=== PATIENT | male | born 1950 | race Caucasian/White ===

== ENCOUNTER → 2017-07-08 06:54 | Outpatient (CLI) | payer OTHER, SELFPAY ==
[2017-07-08 09:03] LABS: Hemoglobin A1C% w Est Avg Glu 8.1 % (4.0-6.0)
[2017-07-08 09:16] LABS: Alanine Aminotransferase 28 IU/L (21-72); Albumin 4.3 g/dL (3.5-5.0); Albumin Globulin Ratio 1.7 (1.0-2.8); Alkaline Phosphatase 112 U/L (38-126); Aspartate Aminotransferase 24 IU/L (17-59); Bilirubin Total 0.9 mg/dL (0.2-1.3); Calcium 9.6 mg/dL (8.4-10.2); Cholesterol 171 mg/dL (140-199); Estimated Glomerular Filt Rate > 60.0 mL/min (>60); Globulin 2.6 g/dL (1.7-4.1); Glucose 238 mg/dL (80-110); HDL Cholesterol 57 mg/dL (40-60); HEMOLYSIS < 15 (0-50); LDL Cholesterol Calculated 82 mg/dL (<100); Potassium 4.3 mmol/L (3.4-5.1); Sodium 138 mmol/L (137-145); Total Protein 6.9 g/dL (6.3-8.2); Triglycerides 160 mg/dL (35-150)
[2017-07-08 09:33] LABS: Thyroid Stimulating Hormone 4.78 uIU/mL (0.47-4.68)
[2017-07-08 09:34] LABS: Prostate Specific Antigen Scrn 0.565 ng/mL (0.1-4.0)
[2017-07-08 10:19] LABS: Creatinine Urine Random 75.5 mg/dL
[2017-07-08 11:29] LABS: Microalbumi Creatinin Ratio Ur 1063.5 ug/mg CR (<30)
[2017-07-08 11:31] LABS: Microalbumin Urine Random 80.3 mg/dL (0-1.6)
[2017-07-08 17:22] LABS: Add Manual Diff / Slide Review NO; Basophils Percent Auto 0.5 % (0-2); Eosinophils Percent Auto 2.7 % (2-4); Hematocrit 42.6 % (41-53); Lymphocytes Percent Auto 21.4 % (25-40); Mean Corpuscular HGB Conc 35.2 % (30-36); Mean Corpuscular Volume 85.2 fL (80-100); Monocytes Percent Auto 6.8 % (3-14); Neutrophils Absolute Auto 5000 /uL (3000-5900); Neutrophils Percent Auto 68.6 % (50-75); Platelet Count 162 X10^3/uL (150-400); Red Cell Distribution Width 13.4 % (11.6-14.8); White Blood Cell Count 7.2 X10^3/uL (4.5-11.0)
== END ==
PROVIDERS: PCP Family Medicine; Visit Provider Family Medicine
DX: E11.9 Type 2 diabetes mellitus without complications (principal); I10 Essential (primary) hypertension
CPT/HCPCS: 36415; 80053; 80061; 82043; 82570; 83036; 84443; 85025; G0103

== ENCOUNTER 2018-08-30 01:50 | Emergency (ER) | payer MEDICARE, MEDICAID, SELFPAY ==
[2018-08-30] VITALS (10 sets, daily range): BP systolic 124–179; BP diastolic 83–117; PULSE 98–115; RESP 14–24; TEMP 36.4–36.7; O2SAT 92–99; BMI 29.6
[2018-08-30] MEDS: NITROGLYCERIN 0.4 MG SL TAB SL (01:55)
--- NOTE | 2018-08-30 01:56 | DI.RAD.S_ITS ---
PROCEDURE: XR CHEST 1V INDICATIONS: chest pain TECHNIQUE: One view of the chest was acquired. COMPARISON: [facility], CR, XR CHEST 1 VIEW, 08/30/2018, 6:00. FINDINGS: Surgical changes and devices: None. Lungs and pleura: There is diffuse interstitial prominence. No focal airspace consolidation. No pleural effusion or pneumothorax. Mediastinum: Mediastinal contours appear normal. Heart size is normal. Bones and chest wall: No suspicious bony lesions. Overlying soft tissues appear unremarkable. IMPRESSION: Diffuse interstitial prominence suggesting pulmonary edema. Dictated by: Deepa Young M.D. on 08/30/2018 at 8:33 Approved by: Deepa Young M.D. on 08/30/2018 at 8:34
--- NOTE | 2018-08-30 01:57 | ED.CHESTPAIN ---
HPI - Chest Pain General Chief Complaint: Chest Pain Stated Complaint: Chest Pain x2 days Time Seen by Provider: 08/30/18 01:56 Source: patient and EMS Mode of arrival: EMS Limitations: no limitations History of Present Illness HPI narrative: This is a 68-year-old male who comes to the emergency department with complaint of chest pain for 3 days. Patient states he has had pressure in his chest that has been continuing. He states that it was milder starting on Tuesday and has increased in intensity. Tonight it became a 10/10 so he contacted EMS. He states that he has felt pressure in his chest radiating towards his back and arms. He states he has a history of cardiac stents placed in 2013 in [place]. He states this feels similar. He feels a little short of breath, he states he received 2 nitro sublingual which have improved his pain although it is still present. He denies any nausea or vomiting. No sweating currently but has felt a little sweaty over the last 3 days. He denies any swelling in his extremities. No issues with bowel movements, or urination. Patient denies any syncope but has felt dizzy. Patient states that he quit all of his medications in February of 2016. He states he took medication for hypertension, diabetes as well as dyslipidemia. Patient states that his blood pressure was very high and that a 200/100 + diastolic is not uncommon for him. He states he has had bilateral hernia repair, he has had multiple kidney stones and cataract surgery. He is not sure who his primary care doctor was but he has seen a Cardiology and the past. States he is allergic to aches, he denies tobacco, shock glass of alcohol 3 times weekly and denies illicit. Related Data Home Medications Medication Instructions Recorded Confirmed aspirin #0 10/12/16 07/07/17 Previous Rx's Medication Instructions Recorded ranitidine 150 mg tablet 150 mg PO BID #180 tab 09/07/17 Allergies Allergy/AdvReac Type Severity Reaction Status Date / Time EGG YOLKS Allergy Unknown Uncoded 07/07/17 09:55 Review of Systems Review of Systems ROS Unobtainable: All systems reviewed & are unremarkable except as noted in HPI and below Constitutional Denies chills, Reports excessive sweating (Slightly sweaty), Denies fever(s), Denies lethargy and Denies weakness Cardiovascular Reports chest pain, Reports chest pain at rest, Reports chest pain with activity, Reports diaphoresis, Denies syncope, Denies edema, Denies irregular heart rhythm, Reports lightheadedness, Denies palpitations, Reports dyspnea, Denies dyspnea on exertion and Denies orthopnea Respiratory Denies change in phlegm color, Denies chest congestion, Denies cough, Reports dyspnea, Denies dyspnea on exertion and Denies wheezing Gastrointestinal Gastrointestinal: Denies abdominal pain, Denies change in bowel habits, Denies diarrhea, Denies nausea and Denies vomiting Genitourinary Denies hematuria, Denies flank pain, Denies urinary frequency, Denies urinary incontinence and Denies urinary urgency Musculoskeletal Denies back pain Neurologic Denies syncope and Denies weakness Endocrine Reports excessive sweating (Slightly sweaty) and Denies palpitations Allergic/Immunologic Denies wheezing [facility] Medical History Ankle pain (Chronic) Anxiety (Chronic) CAD (coronary artery disease) (Chronic ~2013) Diabetes mellitus (Chronic ~2004) Gout (Chronic) Kidney disease (Chronic ~1989) Kidney stones (Chronic) Partial blindness (Chronic ~2002) Shoulder pain (Chronic) Cataracts, bilateral (Resolved ~2016) Chickenpox (Resolved) Measles (Resolved) Stroke (Resolved) Surgical History Anesthesia (Resolved) History of cataract surgery (Resolved ~2016) History of hernia surgery (Resolved ~1996) Family History (Updated 08/08/17 @ 15:27 by [place] Sr) Father Cancer Heart disease Hypertension Congestive heart failure Mother Cancer Diabetes mellitus Hypertension Brother Diabetes mellitus Heart disease Hypertension History of cardiac monitoring Brother Heart disease Hypertension Sister Adopted Grandfather No problems noted. Grandmother Diabetes mellitus Heart disease Hyperlipidemia Hypertension Obesity Grandfather No problems noted. Grandmother No problems noted. 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 special whit needs: Yes ([place], [place], [place] and all over the [place]) leisure activities: reading and other (Walking, ) seatbelt use: always working smoke detector in home: Yes fire extinguisher in home: Yes do you feel safe at home: No (Concerns about my stairs) Smoking Status: Former smoker quit status: has quit before (Quit at the age of 21) alcohol intake: current (1/2 juice glass at night, sometimes) substance use type: does not use during the past year weight has: decreased > 10 lbs well-balanced diet: daily or most days daily servings fruits/ve-4 caffeine: Yes (1-2 drinks per day) eating out: 1-3 times/week Type(s) of exercise: walking (Every day, 8-40 blocks) frequency: daily duration: 30-45 minutes/day additional social history: Plant based diet, 95% of the time. Family History Father Cancer Heart disease Hypertension Congestive heart failure Mother Cancer Diabetes mellitus Hypertension Brother Diabetes mellitus Heart disease Hypertension History of cardiac monitoring Brother Heart disease Hypertension Sister Adopted Grandfather No problems noted. Grandmother Diabetes mellitus Heart disease Hyperlipidemia Hypertension Obesity Grandfather No problems noted. Grandmother No problems noted. 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 special whit needs: Yes ([place], [place], [place] and all over the [place]) leisure activities: reading and other (Walking, ) seatbelt use: always working smoke detector in home: Yes fire extinguisher in home: Yes do you feel safe at home: No (Concerns about my stairs) Smoking Status: Former smoker quit status: has quit before (Quit at the age of 21) alcohol intake: current (1/2 juice glass at night, sometimes) substance use type: does not use during the past year weight has: decreased > 10 lbs well-balanced diet: daily or most days daily servings fruits/ve-4 caffeine: Yes (1-2 drinks per day) eating out: 1-3 times/week Type(s) of exercise: walking (Every day, 8-40 blocks) frequency: daily duration: 30-45 minutes/day additional social history: Plant based diet, 95% of the time. Exam Narrative Exam Narrative: GENERAL: Alert and oriented x three, he obese, well-appearing male in mild distress. HEENT: Head normocephalic, atraumatic, EOMI, pupils reactive, face symmetric, moist mucous membranes NECK: Supple, full range of motion CARDIOVASCULAR: Regular rate and rhythm without murmurs, rubs or gallops. RESPIRATORY: Breath sounds equal bilaterally, no wheezes rales or rhonchi. ABDOMEN: Soft, nontender. Normoactive bowel sounds all 4 quadrants. No guarding or rebound, rigidity, no mass. bruit, no pulsatile mass. : No CVA tenderness EXTREMITIES: Normal range of motion, no clubbing or edema. Neurovascularly intact NEUROLOGICAL: Cranial nerves II through XII grossly intact. Moving all extremities SKIN: Warm, dry, no petechiae, no rashes or lesions. Initial Vital Signs Initial Vital Signs: Vital Signs Temperature 97.6 F 08/30/18 01:45 Pulse Rate 115 H 08/30/18 01:45 Respiratory Rate 20 08/30/18 01:45 Blood Pressure 179/117 H 08/30/18 01:45 Pulse Oximetry 94 08/30/18 01:45 Course Orders Ordered: ED Orders 08/30/18 01:56 XR chest 1V Stat EKG-12 Lead Stat 08/30/18 02:24 B Type Natriuretic Peptide Stat Complete Blood Count AUTO DIFF Stat Comprehensive Metabolic Panel Stat Lipase Stat Troponin & CK Cardiac Panel Stat 08/30/18 02:39 CT angio chest abdomen pelvis Stat 08/30/18 04:36 EKG-12 Lead Stat Nitroglycerin (Nitroglycerin) 50 mg in 250 mls @ 1.5 mls/hr IV TITRATE DELLA; Protocol Last Admin: 08/30/18 02:45 Dose: 5 mcg/min, 1.5 mls/hr Sodium Chloride (Normal Saline 0.9%) 1,000 mls @ 150 mls/hr IV CONT DELLA Last Infusion: 08/30/18 03:57 Dose: 150 mls/hr Admin: 08/30/18 02:44 Dose: 150 mls/hr Heparin Sodium/Dextrose (Heparin Drip) 25,000 unit in 500 mls @ 21.216 mls/hr IV CONT DELLA; Protocol Last Admin: 08/30/18 04:46 Dose: 12 units/kg/hr, 21.216 mls/hr Discontinued Medications Furosemide (Lasix) 40 mg IV NOW ONE Stop: 08/30/18 02:27 Last Admin: 08/30/18 02:41 Dose: 40 mg Heparin Sodium (Porcine) (Heparin) 5,000 unit IV NOW ONE Stop: 08/30/18 02:13 Last Admin: 08/30/18 02:43 Dose: 5,000 unit Nitroglycerin (Nitrostat) 0.4 mg SL NOW ONE Stop: 08/30/18 01:56 Last Admin: 08/30/18 01:55 Dose: 0.4 mg Vital Signs - 8 hr 08/30/18 01:45 08/30/18 01:55 08/30/18 01:56 Temperature 97.6 F Pulse Rate 115 H 115 H 98 H Respiratory Rate 20 24 Blood Pressure 179/117 H 179/117 H Blood Pressure [Right Arm] 149/94 H Pulse Oximetry 94 99 08/30/18 02:45 08/30/18 03:05 08/30/18 03:16 Temperature 98.1 F Pulse Rate 105 H 100 H 104 H Respiratory Rate 24 15 Blood Pressure 151/84 H Blood Pressure [Right Arm] 160/98 H 169/94 H Pulse Oximetry 92 94 08/30/18 03:20 08/30/18 03:56 08/30/18 04:19 Temperature Pulse Rate 99 H 112 H 101 H Respiratory Rate 15 14 Blood Pressure 153/90 H Blood Pressure [Right Arm] 124/97 H 130/83 Pulse Oximetry 97 94 MDM - Chest Pain Lab Data Attestation: I reviewed the patient's lab results. Result diagrams: 08/30/18 02:24 08/30/18 02:24 Lab Results 08/30/18 08/30/18 Range/Units 02:24 02:24 WBC 12.1 H (4.5-11.0) X10^3/uL RBC 5.42 (4.5-5.9) X10^6/uL Hgb 15.5 (13.5-17.5) g/dL Hct 45.0 (41-53) % MCV 83.1 (80-100) fL MCH 28.6 (26-34) PG MCHC 34.4 (30-36) % RDW 14.0 (11.6-14.8) % Plt Count 157 (150-400) X10^3/uL Neut % (Auto) 85.5 H (50-75) % Lymph % (Auto) 8.7 L (25-40) % [place] % (Auto) 5.0 (3-14) % Eos % (Auto) 0.5 L (2-4) % Baso % (Auto) 0.3 (0-2) % Neut # (Auto) 76537 H (0311-3657) /uL Lymph # (Auto) 1100 (1034-9322) /uL [place] # (Auto) 600 (0-900) /uL Eos # (Auto) 100 (0-450) /uL Baso # (Auto) 0 (0-100) /uL Sodium 133 L (137-145) mmol/L Potassium 3.7 (3.4-5.1) mmol/L Chloride 98 (98-107) mmol/L Carbon Dioxide 23 (22-32) mmol/L BUN 17 (9-20) mg/dL Creatinine 1.10 (0.66-1.25) mg/dL Estimated GFR > 60.0 (>60) mL/min BUN/Creatinine Ratio 15.5 (6-22) Glucose 447 H (80-110) mg/dL Calcium 9.0 (8.4-10.2) mg/dL Total Bilirubin 1.1 (0.2-1.3) mg/dL AST 58 (17-59) IU/L ALT 25 (21-72) IU/L Alkaline Phosphatase 112 (38-126) U/L Total Creatine Kinase 275 H (55-170) U/L CK-MB (CK-2) 8.66 H (<2.37) ng/mL CK-MB (CK-2) Rel Index 3.1 (1.5-5.0) % Troponin I 6.110 H* (0.01-0.034) ng/mL B-Natriuretic Peptide 333 H (<100) Total Protein 6.4 (6.3-8.2) g/dL Albumin 3.9 (3.5-5.0) g/dL Globulin 2.5 (1.7-4.1) g/dL Albumin/Globulin Ratio 1.6 (1.0-2.8) Lipase 159 (23-300) U/L Urine Dip Bedside Urine Glucose Negative Bedside Urine Bilirubin - Negative Bedside Urine Ketone - Negative Urine Specific [place] 1.010 Bedside Urine Occult Blood - Negative Bedside Urine pH 7.0 Bedside Urine Protein - Negative Bedside Urine Urobilinogen - Negative Bedside Urine Nitrite - Negative Bedside Urine Leukocytes - Negative Esterase Imaging Data Chest x-ray: My impression: Pulm edema. in infiltrate, no cardiomegaly appreciated. chest/abd/pelvis angio: Radiologist's impression: Dissection protocal, Interstitial edema involving the bilateral lower lobes with minor pleural effusions. Negative for aneurysm or dissection. No rate limiting stenosis within the bilateral renal arteries. Approximately 50% stenosis proximal right renal artery. Renal cyst. Cholelithiasis. Hepatic steatosis. Small sliding hiatal hernia. Left colonic diverticulosis. ECG Data Attestation: I personally reviewed and interpreted this ECG as follows: Interpretation: EKG #[address] depression in 1 and aVL. Patient appears to have 1 mm of elevation in 3 and AVF although not as clear in lead 2. Patient has initial EKG from EMS which does not show ST elevation but appears to have a RsR in 3 and avF.. He does have depression in 1 and aVL. No prior EKGs available through [facility]. EKG#2 ST elevation in 3 and avF, depression in 1 and avL. EKG #3 ST elevation in 3 and AVF. T-wave inversion in 1 and aVL. T waves appear to be evolving in lateral leads. MDM Narrative Medical decision making narrative: Patient's pressure was quite elevated initially with EMS after 2 nitro it decreased to 222/147. He has asa 324mg with EMS. Patient was given a 3rd nitro and pressure decreased to 160's/106.. He states his chest pain is continuing to improve and states it is almost gone. Was 10/10 with EMS. Repeat EKG's show, ST elevation in 3 and avF 1mm with reciprocal depression in 1 and avL. Patient states chest pain is improving. Patient is tachycardic. His initial EKG from EMS does not show any appreciable elevation but does show an RSR in 3 and AVF. Does show a depression in 1 and aVL. Suspect hypertensive emergency and/or STEMI versus dissection vs other. Spoke with the emergency department at [facility]. Dr. Myles he accepts for transfer. He faxed EKGs to Dr. Bonner from Cardiology and they do ask that we do a angio of the chest abdomen to rule out dissection prior to transfer as patient is very high risk for dissection. Patient's chest pain has resolved with nitro gtt, BP is 150's/80's. Dicussed plan with patient. CT shows no dissection does show 50% stenosis proximal right renal artery no rate limiting stenosis within the bilateral renal arteries., he does have + troponin at 6, BS is 447. Re-contacted [facility]. Updated ER, they request repeat EKG and then ship to [facility]. Report, labs and EKGS x3 including EMS EKG, sent [facility] patient. Critical Care Time Critical Care Time: Yes Total Critical Care Time: 180 Attestation: The high probability of a clinically significant, sudden or life threatening deterioration of the [] system(s) required my full and direct attention, intervention and personal management. The aggregate critical care time was [] minutes. This time is in addition to time spent performing reported procedures but includes the following: [x] Data Review and interpretation [x] Patient assessment and monitoring of vital signs [x] Documentation [x] Medication orders and management Discharge Plan Departure Patient Disposition: [facility] Clinical Impression: Hypertensive emergency, ST elevation (STEMI) myocardial infarction Prescriptions: No Action aspirin 81 MG tablet,chewable Qty: 0 RF: 0 ranitidine HCl 150 mg tablet 150 mg PO BID Qty: 180 RF: 0 Referrals: Kaushik Perdue MD [Primary Care Provider] -
--- NOTE | 2018-08-30 02:04 | ED_ITS ---
HPI - Chest Pain General Chief Complaint: Chest Pain Stated Complaint: Chest Pain x2 days Time Seen by Provider: 08/30/18 01:56 Source: patient and EMS Mode of arrival: EMS Limitations: no limitations History of Present Illness HPI narrative: This is a 68-year-old male who comes to the emergency department with complaint of chest pain for 3 days. Patient states he has had pressure in his chest that has been continuing. He states that it was milder starting on Tuesday and has increased in intensity. Tonight it became a 10/10 so he contacted EMS. He states that he has felt pressure in his chest radiating to wards his back and arms. He states he has a history of cardiac stents placed in 2013 in [place]. He states this feels similar. He feels a little short of breath, he states he received 2 nitro sublingual which have improved his pain although it is still present. He denies any nausea or vomiting. No sweating currently but has felt a little sweaty over the last 3 days. He denies any swelling in his extremities. No issues with bowel movements, or urination. Patient denies any syncope but has felt dizzy. Patient states that he quit all of his medications in February of 2016. He states he took medication for hypertension, diabetes as well as dyslipidemia. Patient states that his blood pressure was very high and that a 200/100 + diastolic is not uncommon for him. He states he has had bilateral hernia repair, he has had multiple kidney stones and cataract surgery. He is not sure who his primary care doctor was but he has seen a Cardiology and the past. States he is allergic to aches, he denies tobacco, shock glass of alcohol 3 times weekly and denies illicit. Related Data Home Medications Medication Instructions Recorded Confirmed aspirin #0 10/12/16 07/07/17 Previous Rx's Medication Instructions Recorded ranitidine 150 mg tablet 150 mg PO BID #180 tab 09/07/17 Allergies Allergy/AdvReac Type Severity Reaction Status Date / Time EGG YOLKS Allergy Unknown Uncoded 07/07/17 09:55 Review of Systems Review of Systems ROS Unobtainable: All systems reviewed & are unremarkable except as noted in HPI and below Constitutional Denies chills, Reports excessive sweating (Slightly sweaty), Denies fever(s), Denies lethargy and Denies weakness Cardiovascular Reports chest pain, Reports chest pain at rest, Reports chest pain with activity, Reports diaphoresis, Denies syncope, Denies edema, Denies irregular heart rhythm, Reports lightheadedness, Denies palpitations, Reports dyspnea, Denies dyspnea on exertion and Denies orthopnea Respiratory Denies change in phlegm color, Denies chest congestion, Denies cough, Reports dyspnea, Denies dyspnea on exertion and Denies wheezing Gastrointestinal Gastrointestinal: Denies abdominal pain, Denies change in bowel habits, Denies diarrhea, Denies nausea and Denies vomiting Genitourinary Denies hematuria, Denies flank pain, Denies urinary frequency, Denies urinary incontinence and Denies urinary urgency Musculoskeletal Denies back pain Neurologic Denies syncope and Denies weakness Endocrine Reports excessive sweating (Slightly sweaty) and Denies palpitations Allergic/Immunologic Denies wheezing [facility] Medical History Ankle pain (Chronic) Anxiety (Chronic) CAD (coronary artery disease) (Chronic ~2013) Diabetes mellitus (Chronic ~2004) Gout (Chronic) Kidney disease (Chronic ~1989) Kidney stones (Chronic) Partial blindness (Chronic ~2002) Shoulder pain (Chronic) Cataracts, bilateral (Resolved ~2016) Chickenpox (Resolved) Measles (Resolved) Stroke (Resolved) Surgical History Anesthesia (Resolved) History of cataract surgery (Resolved ~2016) History of hernia surgery (Resolved ~1996) Family History (Updated 08/08/17 @ 15:27 by [place] Sr) Father Cancer Heart disease Hypertension Congestive heart failure Mother Cancer Diabetes mellitus Hypertension Brother Diabetes mellitus Heart disease Hypertension History of cardiac monitoring Brother Heart disease Hypertension Sister Adopted Grandfather No problems noted. Grandmother Diabetes mellitus Heart disease Hyperlipidemia Hypertension Obesity Grandfather No problems noted. Grandmother No problems noted. 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: Jain special whit needs: Yes ([place] and all over the [place]) leisure activities: reading and other (Walking, ) seatbelt use: always working smoke detector in home: Yes fire extinguisher in home: Yes do you feel safe at home: No (Concerns about my stairs) Smoking Status: Former smoker quit status: has quit before (Quit at the age of 21) alcohol intake: current (1/2 juice glass at night, sometimes) substance use type: does not use during the past year weight has: decreased > 10 lbs well-balanced diet: daily or most days daily servings fruits/ve-4 caffeine: Yes (1-2 drinks per day) eating out: 1-3 times/week Type(s) of exercise: walking (Every day, 8-40 blocks) frequency: daily duration: 30-45 minutes/day additional social history: Plant based diet, 95% of the time. Family History Father Cancer Heart disease Hypertension Congestive heart failure Mother Cancer Diabetes mellitus Hypertension Brother Diabetes mellitus Heart disease Hypertension History of cardiac monitoring Brother Heart disease Hypertension Sister Adopted Grandfather No problems noted. Grandmother Diabetes mellitus Heart disease Hyperlipidemia Hypertension Obesity Grandfather No problems noted. Grandmother No problems noted. 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: Jain special whit needs: Yes ([place], [place] and all [place] the [place]) leisure activities: reading and other (Walking, ) seatbelt use: always working smoke detector in home: Yes fire extinguisher in home: Yes do you feel safe at home: No (Concerns about my stairs) Smoking Status: Former smoker quit status: has quit before (Quit at the age of 21) alcohol intake: current (1/2 juice glass at night, sometimes) substance use type: does not use during the past year weight has: decreased > 10 lbs well-balanced diet: daily or most days daily servings fruits/ve-4 caffeine: Yes (1-2 drinks per day) eating out: 1-3 times/week Type(s) of exercise: walking (Every day, 8-40 blocks) frequency: daily duration: 30-45 minutes/day additional social history: Plant based diet, 95% of the time. Exam Narrative Exam Narrative: GENERAL: Alert and oriented x three, he obese, well-appearing m fidelia in mild distress. HEENT: Head normocephalic, atraumatic, EOMI, pupils reactive, face symmetric, moist mucous membranes NECK: Supple, full range of motion CARDIOVASCULAR: Regular rate and rhythm without murmurs, rubs or gallops. RESPIRATORY: Breath sounds equal bilaterally, no wheezes rales or rhonchi. ABDOMEN: Soft, nontender. Normoactive bowel sounds all 4 quadrants. No guarding or rebound, rigidity, no mass. bruit, no pulsatile mass. : No CVA tenderness EXTREMITIES: Normal range of motion, no clubbing or edema. Neurovascularly intact NEUROLOGICAL: Cranial nerves II through XII grossly intact. Moving all extremities SKIN: Warm, dry, no petechiae, no rashes or lesions. Initial Vital Signs Initial Vital Signs: Vital Signs Temperature 97.6 F 08/30/18 01:45 Pulse Rate 115 H 08/30/18 01:45 Respiratory Rate 20 08/30/18 01:45 Blood Pressure 179/117 H 08/30/18 01:45 Pulse Oximetry 94 08/30/18 01:45 Course Orders Ordered: ED Orders 08/30/18 01:56 XR chest 1V Stat EKG-12 Lead Stat 08/30/18 02:24 B Type Natriuretic Peptide Stat Complete Blood Count AUTO DIFF Stat Comprehensive Metabolic Panel Stat Lipase Stat Troponin & CK Cardiac Panel Stat 08/30/18 02:39 CT angio chest abdomen pelvis Stat 08/30/18 04:36 EKG-12 Lead Stat Nitroglycerin (Nitroglycerin) 50 mg in 250 mls @ 1.5 mls/hr IV TITRATE DELLA; Pr otocol Last Admin: 08/30/18 02:45 Dose: 5 mcg/min, 1.5 mls/hr Sodium Chloride (Normal Saline 0.9%) 1,000 mls @ 150 mls/hr IV CONT DELLA Last Infusion: 08/30/18 03:57 Dose: 150 mls/hr Admin: 08/30/18 02:44 Dose: 150 mls/hr Heparin Sodium/Dextrose (Heparin Drip) 25,000 unit in 500 mls @ 21.216 mls/hr IV CONT DELLA; Protocol Last Admin: 08/30/18 04:46 Dose: 12 units/kg/hr, 21.216 mls/hr Discontinued Medications Furosemide (Lasix) 40 mg IV NOW ONE Stop: 08/30/18 02:27 Last Admin: 08/30/18 02:41 Dose: 40 mg Heparin Sodium (Porcine) (Heparin) 5,000 unit IV NOW ONE Stop: 08/30/18 02:13 Last Admin: 08/30/18 02:43 Dose: 5,000 unit Nitroglycerin (Nitrostat) 0.4 mg SL NOW ONE Stop: 08/30/18 01:56 Last Admin: 08/30/18 01:55 Dose: 0.4 mg Vital Signs - 8 hr 08/30/18 01:45 08/30/18 01:55 08/30/18 01:56 Temperature 97.6 F Pulse Rate 115 H 115 H 98 H Respiratory Rate 20 24 Blood Pressure 179/117 H 179/117 H Blood Pressure [Right Arm] 149/94 H Pulse Oximetry 94 99 08/30/18 02:45 08/30/18 03:05 08/30/18 03:16 Temperature 98.1 F Pulse Rate 105 H 100 H 104 H Respiratory Rate 24 15 Blood Pressure 151/84 H Blood Pressure [Right Arm] 160/98 H 169/94 H Pulse Oximetry 92 94 08/30/18 03:20 08/30/18 03:56 08/30/18 04:19 Temperature Pulse Rate 99 H 112 H 101 H Respiratory Rate 15 14 Blood Pressure 153/90 H Blood Pressure [Right Arm] 124/97 H 130/83 Pulse Oximetry 97 94 MDM - Chest Pain Lab Data Attestation: I reviewed the patient's lab results. Result diagrams: 08/30/18 02:24 08/30/18 02:24 Lab Results 08/30/18 08/30/18 Range/Units 02:24 02:24 WBC 12.1 H (4.5-11.0) X10^3/uL RBC 5.42 (4.5-5.9) X10^6/uL Hgb 15.5 (13.5-17.5) g/dL Hct 45.0 (41-53) % MCV 83.1 (80-100) fL MCH 28.6 (26-34) PG MCHC 34.4 (30-36) % RDW 14.0 (11.6-14.8) % Plt Count 157 (150-400) X10^3/uL Neut % (Auto) 85.5 H (50-75) % Lymph % (Auto) 8.7 L (25-40) % Daniels % (Auto) 5.0 (3-14) % Eos % (Auto) 0.5 L (2-4) % Baso % (Auto) 0.3 (0-2) % Neut # (Auto) 53112 H (3674-5008) /uL Lymph # (Auto) 1100 (7156-9927) /uL Daniels # (Auto) 600 (0-900) /uL Eos # (Auto) 100 (0-450) /uL Baso # (Auto) 0 (0-100) /uL Sodium 133 L (137-145) mmol/L Potassium 3.7 (3.4-5.1) mmol/L Chloride 98 (98-107) mmol/L Carbon Dioxide 23 (22-32) mmol/L BUN 17 (9-20) mg/dL Creatinine 1.10 (0.66-1.25) mg/dL Estimated GFR > 60.0 (>60) mL/min BUN/Creatinine Ratio 15.5 (6-22) Glucose 447 H (80-110) mg/dL Calcium 9.0 (8.4-10.2) mg/dL Total Bilirubin 1.1 (0.2-1.3) mg/dL AST 58 (17-59) IU/L ALT 25 (21-72) IU/L Alkaline Phosphatase 112 (38-126) U/L Total Creatine Kinase 275 H (55-170) U/L CK-MB (CK-2) 8.66 H (<2.37) ng/mL CK-MB (CK-2) Rel Index 3.1 (1.5-5.0) % Troponin I 6.110 H* (0.01-0.034) ng/mL B-Natriuretic Peptide 333 H (<100) Total Protein 6.4 (6.3-8.2) g/dL Albumin 3.9 (3.5-5.0) g/dL Globulin 2.5 (1.7-4.1) g/dL Albumin/Globulin Ratio 1.6 (1.0-2.8) Lipase 159 (23-300) U/L Urine Dip Bedside Urine Glucose Negative Bedside Urine Bilirubin - Negative Bedside Urine Ketone - Negative Urine Specific [place] 1.010 Bedside Urine Occult Blood - Negative Bedside Urine pH 7.0 Bedside Urine Protein - Negative Bedside Urine Urobilinogen - Negative Bedside Urine Nitrite - Negative Bedside Urine Leukocytes - Negative Esterase Imaging Data Chest x-ray: My impression: Pulm edema. in infiltrate, no cardiomegaly appreciated. chest/abd/pelvis angio: Radiologist's impression: Dissection protocal, Interstitial edema involving the bilateral lower lobes with minor pleural effusions. Negative for aneurysm or dissection. No rate limiting stenosis within the bilateral renal arteries. Approximately 50% stenosis proximal right renal artery. Renal cyst. Cholelithiasis. Hepatic steatosis. Small sliding hiatal hernia. Left colonic diverticulosis. ECG Data Attestation: I personally reviewed and interpreted this ECG as follows: Interpretation: EKG #[address] depression in 1 and aVL. Patient appears to have 1 mm of elevation in 3 and AVF although not as clear in lead 2. Patient has initial EKG from EMS which does not show ST elevation but appears to have a RsR in 3 and avF.. He does have depression in 1 and aVL. No prior EKGs available through [facility]erver. EKG#2 ST elevation in 3 and avF, depression in 1 and avL. EKG #3 ST elevation in 3 and AVF. T-wave inversion in 1 and aVL. T waves appear to be evolving in lateral leads. [facility] Narrative Medical decision making narrative: Patient's pressure was quite elevated initially with EMS after 2 nitro it decreased to 222/147. He has asa 324mg with EMS. Patient was given a 3rd nitro and pressure decreased to 160's/106.. He states his chest pain is continuing to improve and states it is almost gone. Was 10/10 with EMS. Repeat EKG's show, ST elevation in 3 and avF 1mm with reciprocal depression in 1 and avL. Patient states chest pain is improving. Patient is tachycardic. His initial EKG from EMS does not show any appreciable elevation but does show an RSR in 3 and AVF. Does show a depression in 1 and aVL. Suspect hypertensive emergency and/or STEMI versus dissection vs other. S poke with the emergency department at [facility]. Dr. Myles he accepts for transfer. He faxed EKGs to Dr. Bonner from Cardiology and they do ask that we do a angio of the chest abdomen to rule out dissection prior to transfer as patient is very high risk for dissection. Patient's chest pain has resolved with nitro gtt, BP is 150's/80's. Dicussed plan with patient. CT shows no dissection does show 50% stenosis proximal right renal artery no rate limiting stenosis within the bilateral renal arteries., he does have + troponin at 6, BS is 447. Re-contacted [facility]. Updated ER, they request repeat EKG and then ship to [facility]. Report, labs and EKGS x3 including EMS EKG, sent [facility] patient. Critical Care Time Critical Care Time: Yes Total Critical Care Time: 180 Attestation: The high probability of a clinically significant, sudden or life threatening deterioration of the [] system(s) required my full and direct attention, intervention and personal management. The aggregate critical care time was [] minutes. This time is in addition to time spent performing reported procedures but includes the following: [x] Data Review and interpretation [x] Patient assessment and monitoring of vital signs [x] Documentation [x] Medication orders and management Discharge Plan Departure Patient Disposition: [facility] Clinical Impression: Hypertensive emergency, ST elevation (STEMI) myocardial infarction Prescriptions: No Action aspirin 81 MG tablet,chewable Qty: 0 RF: 0 ranitidine HCl 150 mg tablet 150 mg PO BID Qty: 180 RF: 0 Referrals: Kaushik Perdue MD [Primary Care Provider] -
[2018-08-30 02:33] LABS: Add Manual Diff / Slide Review NO; Basophils Absolute Auto 0 /uL (0-100); Basophils Percent Auto 0.3 % (0-2); Eosinophils Absolute Auto 100 /uL (0-450); Eosinophils Percent Auto 0.5 % (2-4); Hemoglobin 15.5 g/dL (13.5-17.5); Lymphocytes Absolute Auto 1100 /uL (1100-4500); Lymphocytes Percent Auto 8.7 % (25-40); Mean Corpuscular HGB Conc 34.4 % (30-36); Mean Corpuscular Hemoglobin 28.6 PG (26-34); Mean Corpuscular Volume 83.1 fL (80-100); Monocytes Absolute Auto 600 /uL (0-900); Neutrophils Absolute Auto 10400 /uL (1500-7000); Neutrophils Percent Auto 85.5 % (50-75); Platelet Count 157 X10^3/uL (150-400); Red Blood Cell Count 5.42 X10^6/uL (4.5-5.9); White Blood Cell Count 12.1 X10^3/uL (4.5-11.0)
--- NOTE | 2018-08-30 02:39 | DI.CT.S_ITS ---
PROCEDURE: CT ANGIO CHEST ABDOMEN PELVIS INDICATIONS: hypertension TECHNIQUE: Precontrast 5 mm thick sections acquired from the lung apices to the iliac crests. After the administration of intravenous contrast, 2.5 mm thick sections again acquired from the lung apices to the iliac crests. Maximum intensity projection (MIP) oblique sagittal and coronal reformats were then acquired. For radiation dose reduction, the following was used: automated exposure control. COMPARISON: [facility], CR, XR CHEST 1 VIEW, 08/30/2018, 6:00. FINDINGS: Image quality: Excellent. AORTA: Noncontrast images demonstrate no evidence of intramural hematoma. The aorta demonstrates normal caliber and contour without intimal flaps to suggest aortic dissection. There is conventional branching of the aortic arch. Visualized great vessels are normal in caliber and appear widely patent. CHEST: Lungs and pleura: There is mild dependent atelectasis. There are bilateral clustered indistinct ground glass opacities with a basilar predominance in the lower lobes suggestive of a mild infectious or inflammatory process. The distribution raises the possibility of aspiration. There is mild septal thickening also demonstrated in the lower lobes suggestive of mild pulmonary edema. No pleural effusions or pneumothorax. Central and peripheral airways are patent and normal in caliber. Mediastinum: Heart size is mildly enlarged. No pericardial effusion. No mediastinal or hilar adenopathy by size criteria. No pulmonary arteries are normal in size and demonstrate no filling defects to suggest central pulmonary embolism to the level of the proximal subsegmental pulmonary arteries. Esophagus is normal in caliber. There is a small hiatal hernia. Bones and chest wall: No axillary adenopathy by size criteria. Thyroid gland demonstrates no discrete nodules. No suspicious bony lesions. No vertebral body compression fractures. ABDOMEN: Vasculature: The celiac, superior mesenteric, and inferior mesenteric arteries appear patent. There is a small accessory right renal artery supplying the superior pole of the right kidney. There are 3 small accessory left renal arteries. There is a short segment of mild narrowing of approximately 40-50% in the proximal right renal artery. Solid organs: There is hypoattenuation of the liver consistent with fatty infiltration with relative sparing along the gallbladder fossa. A small hypodensity in the anterior right hepatic dome is too small to characterize but likely represents a cyst. The gallbladder appears within normal limits without calcified gallstones. Biliary system is non-dilated. Pancreas enhances normally. No peripancreatic fat stranding or fluid collections. No pancreatic duct dilatation. The spleen is normal in size. No adrenal nodules. Kidneys demonstrate no hydronephrosis. There are bilateral renal cysts as well as a smaller distal density round foci which are too small to characterize but likely represent cysts. There is a punctate nonobstructing stone in the inferior pole of the right kidney. Peritoneum and bowel: No free fluid or air. Bowel loops are normal in caliber and wall thickness. The appendix is normal in appearance. There is colonic diverticulosis without acute diverticulitis. Nodes and vessels: No retroperitoneal or mesenteric adenopathy by size criteria. Inferior vena cava is normal in morphology. Miscellaneous: No ventral hernias. PELVIS: Genitourinary: Bladder wall thickness is normal. Miscellaneous: No inguinal hernias or adenopathy. No ventral hernias. Bones: No suspicious bony lesions. No vertebral body compression fractures. IMPRESSION: 1. No evidence of aortic dissection. 2. No evidence of central pulmonary embolism. 3. Small bilateral accessory renal arteries, 1 on the right and 3 on the left. There is mild short segment narrowing in the proximal right renal artery of approximately 40-50%. 4. Small clustered ground glass opacities within the lower lobes bilaterally suggestive of mild infectious or inflammatory process. The distribution also raises the possibility of aspiration. Mild pulmonary edema is also noted in the lower lobes. 5. Colonic diverticulosis without acute diverticulitis. Dictated by: Tenzin Kiran M.D. on 08/30/2018 at 8:13 Approved by: Tenzin Kiran M.D. on 08/30/2018 at 8:29
[2018-08-30] MEDS: FUROSEMIDE 40 MG/4 ML VIAL IV (02:41)
[2018-08-30 02:42] LABS: Alanine Aminotransferase 25 IU/L (21-72); Albumin 3.9 g/dL (3.5-5.0); Albumin Globulin Ratio 1.6 (1.0-2.8); Alkaline Phosphatase 112 U/L (38-126); Aspartate Aminotransferase 58 IU/L (17-59); BUN Creatinine Ratio 15.5 (6-22); Bilirubin Total 1.1 mg/dL (0.2-1.3); Blood Urea Nitrogen 17 mg/dL (9-20); Carbon Dioxide 23 mmol/L (22-32); Chloride 98 mmol/L (98-107); Creatine Kinase 275 U/L (55-170); Estimated Glomerular Filt Rate > 60.0 mL/min (>60); Globulin 2.5 g/dL (1.7-4.1); Glucose 447 mg/dL (80-110); HEMOLYSIS < 15 (0-50); Lipase 159 U/L (23-300); Potassium 3.7 mmol/L (3.4-5.1); Sodium 133 mmol/L (137-145); Total Protein 6.4 g/dL (6.3-8.2)
[2018-08-30] MEDS: HEPARIN 5,000 UNIT/ML VIAL 5000 UNIT IV (02:43)
[2018-08-30] MEDS: SODIUM CHLORIDE 0.9% 1,000 ML 150 ML IV (02:44)
[2018-08-30] MEDS: NITROGLYCERIN 50 MG/250 ML INFUS..BTL IV (02:45)
[2018-08-30 02:57] LABS: CKMB % Relative Index 3.1 % (1.5-5.0); Creatine Kinase MB 8.66 ng/mL (<2.37)
[2018-08-30 03:01] LABS: B Type Natriuretic Peptide 333 (<100)
[2018-08-30] MEDS: HEPARIN DRIP 25,000 UNIT/500 ML IV.SOLN 21.216 UNIT IV (04:46)
== END 2018-08-30 05:19 | disposition short-term general hospital (02) ==
PROVIDERS: Emergency Provider Emergency Medicine; PCP Family Medicine
DX: I16.1 Hypertensive emergency (principal); I21.3 ST elevation (STEMI) myocardial infarction of unspecified site; Z95.818 Presence of other cardiac implants and grafts
CPT/HCPCS: 36415; 71045; 71275; 74174; 80053; 81003; 82550; 82553; 83690; 83880; 84484; 85025; 93005; 96365; 96366; 96375; 99285; 99291; 99292; J1644; J1940; Q9967

== ENCOUNTER → 2018-09-28 07:43 | Outpatient (CLI) | payer MEDICARE, MEDICAID, SELFPAY ==
[2018-09-28 08:13] LABS: Add Manual Diff / Slide Review NO; Basophils Absolute Auto 0 /uL (0-100); Basophils Percent Auto 0.1 % (0-2); Eosinophils Absolute Auto 200 /uL (0-450); Eosinophils Percent Auto 3.7 % (2-4); Hematocrit 36.5 % (41-53); Hemoglobin 12.7 g/dL (13.5-17.5); Lymphocytes Absolute Auto 1200 /uL (1100-4500); Lymphocytes Percent Auto 17.9 % (25-40); Mean Corpuscular HGB Conc 34.8 % (30-36); Mean Corpuscular Hemoglobin 29.3 PG (26-34); Mean Corpuscular Volume 84.1 fL (80-100); Monocytes Absolute Auto 500 /uL (0-900); Monocytes Percent Auto 7.6 % (3-14); Neutrophils Absolute Auto 4700 /uL (1500-7000); Neutrophils Percent Auto 70.7 % (50-75); Platelet Count 121 X10^3/uL (150-400); Red Blood Cell Count 4.34 X10^6/uL (4.5-5.9); Red Cell Distribution Width 14.1 % (11.6-14.8); White Blood Cell Count 6.7 X10^3/uL (4.5-11.0)
[2018-09-28 08:20] LABS: Hemoglobin A1C% w Est Avg Glu 8.8 % (4.0-6.0)
[2018-09-28 08:35] LABS: Alanine Aminotransferase 13 IU/L (21-72); Albumin 4.4 g/dL (3.5-5.0); Albumin Globulin Ratio 1.5 (1.0-2.8); Alkaline Phosphatase 67 U/L (38-126); Aspartate Aminotransferase 27 IU/L (17-59); BUN Creatinine Ratio 23.6 (6-22); Bilirubin Total 0.9 mg/dL (0.2-1.3); Blood Urea Nitrogen 33 mg/dL (9-20); Calcium 9.9 mg/dL (8.4-10.2); Carbon Dioxide 23 mmol/L (22-32); Chloride 106 mmol/L (98-107); Cholesterol 107 mg/dL (140-199); Estimated Glomerular Filt Rate 50.7 mL/min (>60); Globulin 2.9 g/dL (1.7-4.1); Glucose 152 mg/dL (80-110); HDL Cholesterol 45 mg/dL (40-60); HEMOLYSIS < 15 (0-50); LDL Cholesterol Calculated 41 mg/dL (<100); Potassium 4.5 mmol/L (3.4-5.1); Sodium 138 mmol/L (137-145); Total Protein 7.3 g/dL (6.3-8.2); Triglycerides 107 mg/dL (35-150)
[2018-09-28 09:07] LABS: Free T3, Triiodothyronine Free 3.36 pg/mL (2.77-5.27); Free T4, Direct Thyroxine 0.79 ng/dL (0.78-2.19)
[2018-09-28 09:21] LABS: Thyroid Stimulating Hormone 7.26 uIU/mL (0.47-4.68)
== END ==
PROVIDERS: Family Provider Family Medicine; PCP Family Medicine; Visit Provider Internal Medicine Cardiovascular Disease
DX: I10 Essential (primary) hypertension (principal); E11.9 Type 2 diabetes mellitus without complications
CPT/HCPCS: 36415; 80053; 80061; 83036; 84439; 84443; 84481; 85025

== ENCOUNTER → 2018-11-02 09:54 | Outpatient (CLI) | payer MEDICARE, MEDICAID, SELFPAY ==
--- NOTE | 2018-11-02 | DI.US.S_ITS ---
PROCEDURE: US RENAL COMPLETE INDICATIONS: CHRONIC KIDNEY DISEASE TECHNIQUE: Real-time scanning was performed of the kidneys and bladder, with image documentation. COMPARISON: [facility], CT, CT ANGIO CHEST ABDOMEN PELVIS, 08/30/2018, 2:48. FINDINGS: Kidneys: Kidneys are normal in size. Right kidney measures 11.8 cm long; left kidney measures 13.3 cm long. Right renal cortical thickness is 1.4 cm; left renal cortical thickness is 1.6 cm. Renal cortical echotexture is slightly increased. No hydronephrosis or nephrolithiasis. No suspicious solid mass lesions. Bilateral renal cysts redemonstrated largest of which is on the left measuring up to 6.1 cm. Bladder: Pre-void bladder volume is 28 mL. Post-void residual is 38 mL. Pre-void images demonstrate no intraluminal masses or stones. On pre-void images, bilateral ureteral jets are noted with color Doppler interrogation. (Of note, ureteral jets may not be detectable in up to 25% of cases due to insufficient differences in specific gravity between ureteral and bladder urine). Miscellaneous: No free pelvic fluid. IMPRESSION: Slight increase in renal cortical echogenicity bilaterally and multiple bilateral renal cysts redemonstrated, left greater than right. Dictated by: George DICKENS Interpreted: Gab Higuera MD on 11/02/2018 at 12:44 Approved by: Gab Higeura M.D. on 11/02/2018 at 14:00
== END ==
PROVIDERS: Family Provider Family Medicine; PCP Family Medicine; Visit Provider Internal Medicine Nephrology
DX: N18.3 Chronic kidney disease, stage 3 (moderate) (principal); N28.1 Cyst of kidney, acquired
CPT/HCPCS: 76770

== ENCOUNTER → 2018-11-08 08:39 | Outpatient (CLI) | payer MEDICARE, MEDICAID, SELFPAY ==
[2018-11-08 10:42] LABS: Hemoglobin A1C% w Est Avg Glu 6.2 % (4.0-6.0)
[2018-11-08 10:52] LABS: BUN Creatinine Ratio 24.6 (6-22); Blood Urea Nitrogen 32 mg/dL (9-20); Calcium 9.9 mg/dL (8.4-10.2); Carbon Dioxide 20 mmol/L (22-32); Chloride 105 mmol/L (98-107); Estimated Glomerular Filt Rate 55.2 mL/min (>60); Glucose 206 mg/dL (80-110); HEMOLYSIS < 15 (0-50); Potassium 4.3 mmol/L (3.4-5.1); Sodium 138 mmol/L (137-145)
[2018-11-08 11:03] LABS: Free T3, Triiodothyronine Free 3.12 pg/mL (2.77-5.27); Free T4, Direct Thyroxine 0.86 ng/dL (0.78-2.19)
[2018-11-08 11:17] LABS: TSH w/ Reflex to FT4 6.65 uIU/mL (0.47-4.68)
== END ==
PROVIDERS: PCP Family Medicine; Visit Provider Family Medicine
DX: E11.9 Type 2 diabetes mellitus without complications (principal); R79.89 Other specified abnormal findings of blood chemistry
CPT/HCPCS: 36415; 80048; 83036; 84439; 84443; 84481

== ENCOUNTER → 2018-12-25 10:22 | Outpatient (CLI) | payer MEDICARE, MEDICAID, SELFPAY ==
[2018-12-25 12:13] LABS: BUN Creatinine Ratio 26.2 (6-22); Blood Urea Nitrogen 34 mg/dL (9-20); Calcium 10.2 mg/dL (8.4-10.2); Carbon Dioxide 24 mmol/L (22-32); Chloride 101 mmol/L (98-107); Estimated Glomerular Filt Rate 55.2 mL/min (>60); Glucose 128 mg/dL (80-110); HEMOLYSIS < 15 (0-50); Potassium 4.6 mmol/L (3.4-5.1); Sodium 139 mmol/L (137-145)
[2018-12-25 12:41] LABS: Hemoglobin A1C% w Est Avg Glu 5.9 % (4.0-6.0)
[2018-12-25 13:26] LABS: Free T4, Direct Thyroxine 0.81 ng/dL (0.78-2.19)
== END ==
PROVIDERS: PCP Family Medicine; Visit Provider Family Medicine
DX: E11.9 Type 2 diabetes mellitus without complications (principal)
CPT/HCPCS: 36415; 80048; 83036; 84439; 84443

== ENCOUNTER → 2019-03-09 09:47 | Outpatient (CLI) | payer MEDICARE, SELFPAY ==
[2019-03-09 10:43] LABS: Hemoglobin A1C% w Est Avg Glu 5.5 % (4.0-6.0)
[2019-03-09 11:38] LABS: Thyroid Stimulating Hormone 3.37 uIU/mL (0.47-4.68)
== END ==
PROVIDERS: PCP Family Medicine; Visit Provider Family Medicine
DX: E11.9 Type 2 diabetes mellitus without complications (principal); E03.9 Hypothyroidism, unspecified
CPT/HCPCS: 36415; 83036; 84443

== ENCOUNTER → 2019-05-07 09:11 | Outpatient (CLI) | payer MEDICARE, SELFPAY ==
[2019-05-07 10:04] LABS: Hemoglobin A1C% w Est Avg Glu 5.8 % (4.0-6.0)
[2019-05-07 11:14] LABS: Blood Urea Nitrogen 38 mg/dL (9-20); Calcium 10.4 mg/dL (8.4-10.2); Carbon Dioxide 19 mmol/L (22-32); Chloride 106 mmol/L (98-107); Glucose 121 mg/dL (80-110); HEMOLYSIS 21 (0-50); Potassium 5.5 mmol/L (3.4-5.1); Sodium 138 mmol/L (137-145)
== END ==
PROVIDERS: PCP Family Medicine; Referring Provider Family Medicine; Visit Provider Family Medicine
DX: E11.9 Type 2 diabetes mellitus without complications (principal)
CPT/HCPCS: 36415; 80048; 83036

== ENCOUNTER → 2019-07-30 06:54 | Outpatient (CLI) | payer MEDICARE, SELFPAY ==
[2019-07-30 09:12] LABS: BUN Creatinine Ratio 20.6 (6-22); Blood Urea Nitrogen 34 mg/dL (9-20); Carbon Dioxide 20 mmol/L (22-32); Chloride 106 mmol/L (98-107); Cholesterol 114 mg/dL (140-199); Estimated Glomerular Filt Rate 41.8 mL/min (>60); Glucose 111 mg/dL (80-110); HDL Cholesterol 42 mg/dL (40-60); HEMOLYSIS < 15 (0-50); LDL Cholesterol Calculated 40 mg/dL (<100); Potassium 4.5 mmol/L (3.4-5.1); Sodium 137 mmol/L (137-145); Triglycerides 158 mg/dL (35-150)
[2019-07-30 09:33] LABS: TSH w/ Reflex to FT4 4.83 uIU/mL (0.47-4.68)
[2019-07-30 10:00] LABS: Free T4, Direct Thyroxine 0.92 ng/dL (0.78-2.19)
[2019-07-31 16:08] LABS: Hemoglobin A1C% w Est Avg Glu 6.1 % (4.0-6.0)
== END ==
PROVIDERS: PCP Family Medicine; Referring Provider Family Medicine; Visit Provider Family Medicine
DX: E11.9 Type 2 diabetes mellitus without complications (principal); I10 Essential (primary) hypertension; I25.10 Atherosclerotic heart disease of native coronary artery without angina pectoris; R79.89 Other specified abnormal findings of blood chemistry
CPT/HCPCS: 36415; 80048; 80061; 83036; 84439; 84443

== ENCOUNTER → 2019-08-07 11:53 | Outpatient (CLI) | payer MEDICARE, SELFPAY ==
--- NOTE | 2019-08-07 11:55 | DI.RAD.S_ITS ---
PROCEDURE: XR HIP W PEL IF DONE LT MIN 4V INDICATIONS: Hip pain TECHNIQUE: AP pelvis with lateral view(s) of the left and right hip(s). COMPARISON: None. FINDINGS: Bones: No fractures or dislocations. Pelvic ring appears intact. No suspicious bony lesions. Soft tissues: The visualized bowel gas pattern is normal. No suspicious soft tissue calcifications. IMPRESSION: Mild bilateral hip joint degeneration. Dictated by: Gab Higuera M.D. on 08/07/2019 at 13:05 Approved by: Gab Higuera M.D. on 08/07/2019 at 13:06
== END ==
PROVIDERS: PCP Family Medicine; Referring Provider Family Medicine; Visit Provider Family Medicine
DX: M25.559 Pain in unspecified hip (principal); M16.0 Bilateral primary osteoarthritis of hip
CPT/HCPCS: 73522

== ENCOUNTER → 2019-11-05 07:16 | Outpatient (CLI) | payer MEDICARE, SELFPAY ==
[2019-11-05 07:57] LABS: BUN Creatinine Ratio 20.4 (6-22); Blood Urea Nitrogen 30 mg/dL (9-20); Calcium 9.9 mg/dL (8.4-10.2); Carbon Dioxide 24 mmol/L (22-32); Chloride 103 mmol/L (98-107); Estimated Glomerular Filt Rate 47.8 mL/min (>60); Glucose 126 mg/dL (80-110); HEMOLYSIS < 15 (0-50); Hemoglobin A1C% w Est Avg Glu 5.5 % (4.0-6.0); Potassium 4.5 mmol/L (3.4-5.1); Sodium 139 mmol/L (137-145)
[2019-11-05 09:17] LABS: Thyroid Stimulating Hormone 4.19 uIU/mL (0.47-4.68)
== END ==
PROVIDERS: PCP Family Medicine; Referring Provider Family Medicine; Visit Provider Family Medicine
DX: E11.9 Type 2 diabetes mellitus without complications (principal)
CPT/HCPCS: 36415; 80048; 83036; 84443

== ENCOUNTER → 2020-01-04 06:59 | Outpatient (CLI) | payer MEDICARE, SELFPAY ==
[2020-01-04 07:35] LABS: Add Manual Diff / Slide Review NO; Basophils Absolute Auto 0 /uL (0-100); Basophils Percent Auto 0.2 % (0-2); Eosinophils Absolute Auto 100 /uL (0-450); Hematocrit 35.9 % (41-53); Hemoglobin 12.1 g/dL (13.5-17.5); Lymphocytes Absolute Auto 1400 /uL (1100-4500); Lymphocytes Percent Auto 20.7 % (25-40); Mean Corpuscular HGB Conc 33.7 % (30-36); Mean Corpuscular Hemoglobin 28.8 PG (26-34); Mean Corpuscular Volume 85.5 fL (80-100); Monocytes Absolute Auto 500 /uL (0-900); Monocytes Percent Auto 7.2 % (3-14); Neutrophils Absolute Auto 4700 /uL (1500-7000); Neutrophils Percent Auto 69.9 % (50-75); Platelet Count 178 X10^3/uL (150-400); Red Cell Distribution Width 14.6 % (11.6-14.8); White Blood Cell Count 6.7 X10^3/uL (4.5-11.0)
[2020-01-04 07:45] LABS: Alanine Aminotransferase 12 IU/L (<50); Albumin 4.5 g/dL (3.5-5.0); Albumin Globulin Ratio 1.5 (1.0-2.8); Alkaline Phosphatase 69 U/L (38-126); Aspartate Aminotransferase 22 IU/L (17-59); BUN Creatinine Ratio 21.5 (6-22); Bilirubin Total 0.5 mg/dL (0.2-1.3); Blood Urea Nitrogen 34 mg/dL (9-20); Calcium 9.7 mg/dL (8.4-10.2); Carbon Dioxide 23 mmol/L (22-32); Chloride 107 mmol/L (98-107); Cholesterol 197 mg/dL (140-199); Globulin 3.1 g/dL (1.7-4.1); Glucose 123 mg/dL (80-110); HDL Cholesterol 48 mg/dL (40-60); HEMOLYSIS < 15 (0-50); LDL Cholesterol Calculated 98 mg/dL (<100); Potassium 4.8 mmol/L (3.4-5.1); Sodium 138 mmol/L (137-145); Total Protein 7.6 g/dL (6.3-8.2); Triglycerides 256 mg/dL (35-150)
[2020-01-04 07:54] LABS: Hemoglobin A1C% w Est Avg Glu 6.3 % (4.0-6.0)
[2020-01-04 09:11] LABS: TSH w/ Reflex to FT4 4.59 uIU/mL (0.47-4.68)
== END ==
PROVIDERS: PCP Family Medicine; Referring Provider Family Medicine; Visit Provider Family Medicine
DX: E11.9 Type 2 diabetes mellitus without complications (principal)
CPT/HCPCS: 36415; 80053; 80061; 83036; 84443; 85025